=== PATIENT | male | born 1945 | race Two or more races ===

== ENCOUNTER 2017-10-12 06:05 | Day surgery (SDC) | payer MEDICARE, MEDICAID ==
--- NOTE | 2017-10-09 16:40 | Pre-Procedure Note/Attestation ---
Pre-Procedure Note/Attestation Complete Prior to Procedure Planned Procedure: right Procedure Narrative: Phaco with IOL, OD Indications for Procedure Pre-Operative Diagnosis: cataract Attestation I attest that I discussed the nature of the procedure; its benefits; risks and complications; and alternatives (and the risks and benefits of such alternatives ), prior to the procedure, with the patient (or the patient's legal customer solutions representative). I attest that, if there was a reasonable possibility of needing a blood transfusion, the patient (or the patient's legal customer solutions representative) was given the [facility] standardized written summary, pursuant to the [place] Blood Safety Act ([place] Health and Safety Code # 1645, as amended). I attest that I re-evaluated the patient just prior to the surgery and that there has been no change in the patient's H&P, except as documented below: MARYLIN LINDSAY Oct 09, 2017 16:40
--- NOTE | 2017-10-09 16:44 | Opthalmology H&P ---
Ophthalmology H&P H&P Chief Complaint: decreased vision in right eye HPI Vision Affects Ability to: read, focus/use eyes together, manage personal affairs HPI Narrative blurry vision Exam Visual Acuity: OD: LP OS: CF Tension: OD: 15 OS: 14 Eye Exam: normal OU: external exam, palpebral fissure-width, marginal reflex distance, levator function, corneas, anterior chambers, findings: lens - OD: dense cataract OS; dense cataract, fundus exam - poor view Assessment/Plan Diagnosis: (1) Cataract, total/mature Treatment Plan: cataract extraction w/ lens implant Goals of Treatment: improvement of vision, enhance quality of life Attestation Attestation The risks and benefits of the surgery as well as alternative procedures were explained to the patient in detail. MARYLIN LINDSAY Oct 09, 2017 16:44
[2017-10-12] VITALS (7 sets, daily range): BP systolic 129–145; BP diastolic 76–86
[~2017-10-12] VITALS: Ht 165.1 cm; Wt 56.7 kg
[~2017-10-12 06:05] MED LIST: ASPIR 8181 MG ORAL; NKM
[2017-10-12] MEDS ORDERED: Lidocaine 1% MPF 10mg/ml 5ml ONE (06:58)
[2017-10-12] MEDS ORDERED: Povidone-Iodine 5% opth solution ONE (06:59)
[2017-10-12] MEDS ORDERED: Carbachol 0.01% Op Soln 1.5ml vial ONE (06:59)
[2017-10-12] MEDS ORDERED: EPINEPHrine 1mg/1ml Amp ONE ×2 (06:59→07:00)
[2017-10-12] MEDS ORDERED: Akten 3.5% 1ml Btl RIGHT EYE ONE (07:00)
[2017-10-12] MEDS ORDERED: Tetracaine 0.5% Opth 4ml Soln RIGHT EYE ONE (07:00)
[2017-10-12] MEDS ORDERED: Dexamethasone 4mg/ml vial ONE (07:00)
[2017-10-12] MEDS ORDERED: Sodium Hyaluronate 14 mg/ml 0.85ml ONE (07:00)
[2017-10-12] MEDS ORDERED: BSS 500ml btl ONE (07:00)
[2017-10-12] MEDS ORDERED: Pred Forte 1% Opth Susp 1ml ONE (07:00)
[2017-10-12] MEDS ORDERED: Pilocarpine 2% Opth 15ml Soln ONE (07:00)
[2017-10-12] MEDS ORDERED: BSS 15ml BTL ONE (07:00)
[2017-10-12] MEDS ORDERED: Proparacaine 0.5% Opth Soln 15ml RIGHT EYE ONE (07:00)
[2017-10-12] MEDS ORDERED: Sterile Water 10ml Vial ONE (07:00)
[2017-10-12] MEDS ORDERED: Maxitrol Opth Oint 3.5gm ONE (07:00)
[2017-10-12] MEDS: Tropicamide 1% Opth 15ml Soln RIGHT EYE SCH ×3 (07:48→08:10)
[2017-10-12] MEDS: Ketorolac Tromethamine Opth 5ml Soln RIGHT EYE SCH ×3 (07:48→08:10)
[2017-10-12] MEDS: Tobramycin Op Soln 0.3% 5ml RIGHT EYE SCH ×3 (07:49→08:10)
[2017-10-12] MEDS: Phenylephrine 10% Opth Soln 5ml RIGHT EYE SCH ×3 (07:49→08:10)
[2017-10-12] MEDS: Cyclopentolate 1% Opth Sol 2ml RIGHT EYE SCH ×3 (07:49→08:10)
--- NOTE | 2017-10-12 10:49 | Anethesia Preoperative Eval ---
Anesthesia Pre-op PMH/ROS General Date of Evaluation: Oct 12, 2017 Time of Evaluation: 11:25 Anesthesiologist: Myriam ASA Score: ASA 2 Mallampati Score Class I : Soft palate, uvula, fauces, pillars visible Class II: Soft palate, uvula, fauces visible Class III: Soft palate, base of uvula visible Class IV: Only hard plate visible Mallampati Classification: Class II Surgeon: Britany Diagnosis: right eye cataract Surgical Procedure: right eye cataract removal with IOL Anesthesia History: none Social History: alcohol use - daily Family History: no anesthesia problems Allergies: Coded Allergies: No Known Allergies (Unverified , 10/09/17) Medications: see eMAR Past Medical History Cardiovascular: Denies: HTN, CAD, [place], valve dz, arrhythmia, other Pulmonary: Denies: asthma, COPD, [place], other Gastrointestinal/Genitourinary: Denies: GERD, CRI, ESRD, other Neurologic/Psychiatric: Reports: CVA - 2015 Endocrine: Denies: DM, hypothyroidism, steroids, other HEENT: Reports: cataract (L), cataract (R), other - [place] Hematology/Immune: Denies: anemia, DVT, bleeding disorder, other Musculoskeletal/Integumentary: Reports: OA, other - unsteady gait uses cane, neck surgery secondary to fracture Anesthesia Pre-op Phys. Exam Physician Exam Last Vital Signs Date Time Temp Pulse Resp B/P (MAP) Pulse Ox O2 Delivery O2 Flow Rate FiO2 10/12/17 07:57 98.9 84 18 144/84 97 Room Air Constitutional: NAD Neurologic: CN 2-12 intact Cardiovascular: RRR Respiratory: CTA Gastrointestinal: S/NT/ND Airway Exam Mallampati Score: Class II MO: limited ROM: full Teeth: missing Dentures: no upper, no lower Anesthesia Pre-op A/P Labs chart reviewed Accucheck Risk Assessment & Plan Assessment: A&Ox3 Plan: MAC as per . General as back-up plan. Status Change Before Surgery: No Pre-Antibiotics Given Within 1 Hr of Incision: No Barbara Miguel CRNA Oct 12, 2017 10:49
[2017-10-12] MEDS ORDERED: NS Irrig 1000ml ONE (11:30)
[2017-10-12] MEDS ORDERED: Midazolam 2mg/2ml Inj ONE (11:30)
[2017-10-12] MEDS ORDERED: Sterile Water Irrig 1000ml IRRIG ONE (11:30)
[2017-10-12] MEDS ORDERED: Propofol 200mg/20ml IV ONE (11:30)
[2017-10-12] MEDS ORDERED: LR 1000ml ONE (11:30)
--- NOTE | 2017-10-12 12:38 | Immediate Post-Op Evaluation ---
Immediate Post-Op Evalulation Immediate Post-Op Evalulation Procedure: right eye cataract removal with IOL Date of Evaluation: Oct 12, 2017 Time of Evaluation: 12:20 IV Fluids: LR 300 ml Blood Products: 0 Estimated Blood Loss: less than 3 ml Urinary Output: 0 Blood Pressure Systolic: 145 Blood Pressure Diastolic: 81 Pulse Rate: 82 Respiratory Rate: 25 O2 Sat by Pulse Oximetry: 98 Temperature (Fahrenheit): 98.8 Pain Score (1-10): 0 Nausea: No Vomiting: No Complications none noted Patient Status: awake, reacts Hydration Status: adequate Given Within 1 Hr of Incision: Barbara Reis CRNA Oct 12, 2017 12:38
--- NOTE | 2017-10-12 12:40 | 48 Hour Post Anesthesia Eval ---
Post Anesthesia Evaluation Procedure: right eye cataract removal with IOL Date of Evaluation: Oct 12, 2017 Time of Evaluation: 12:26 Blood Pressure Systolic: 142 0: 79 Pulse Rate: 80 Respiratory Rate: 24 Temperature (Fahrenheit): 98.8 O2 Sat by Pulse Oximetry: 98 Airway: patent Nausea: No Vomiting: No Pain Intensity: 0 Hydration Status: adequate Mental Status/LOC: patient returned to baseline Post-Anesthesia Complications: none Follow-up care needed: patient intructions given Barbara Miguel CRNA Oct 12, 2017 12:40
--- NOTE | 2017-10-15 09:09 | Brief Operative Note ---
Immediate Post Operative Note Operative Note Chief Complaint: blurry vision Pre-op Diagnosis: cataract, OD Procedure: phaco with IOL, OD Post-op Diagnosis: Pseudophakia Post-op Diagnosis: same as pre-op Findings: consistent w/pre-op dx studies Surgeon: Britany Anesthesiologist: Myriam Specimen: none Complications: none Fluids: LR Estimated Blood Loss: none Drains: none Implant(s) used?: Yes MARYLIN LINDSAY Oct 15, 2017 09:08
--- NOTE | 2017-10-15 09:10 | Operative Note - PDOC ---
Operative Note Operative Note Date of Operation/Procedure: Oct 12, 2017 Chief Complaint: blurry vision Pre-op Diagnosis: cataract, OD Procedure: phaco with IOL, OD Post-op Diagnosis: Pseudophakia Post-op Diagnosis: same as pre-op Operative Findings: consistent w/pre-op dx studies Surgeon: Britany Anesthesiologist: Myriam Specimen: none Complications: none Fluids: LR Estimated Blood Loss: none Drains: none Implant(s) used?: Yes Indications for Procedure cataract Description of Procedure This patient has been complaining visually significant cataract in the affected eye with the best corrected visual acuity under moderate glare conditions worse. The patient complains of difficulties with glare in performing activities of daily living and wants to manage personal affairs with comfort and accuracy and see well enough to move with safety at home and outdoors. The risks, benefits and alternatives of the procedure were discussed with the patient in the office prior to scheduling surgery. All questions from the patient were answered after the surgical procedure was explained in detail. The risks of the procedure as explained to the patient include, but are not limited to, pain, infection, bleeding, loss of vision, retinal detachment, need for further surgery, loss of lens nucleus, double vision, etc. Alternative procedures were discussed which include, to do nothing or seek a second opinion. Informed consent for this procedure was obtained from the patient. The patient was referred to a primary care physician for a cardiopulmonary clearance prior to surgery, after proper evaluation was done patient was properly scheduled for outpatient surgery. The patient was brought to the operating room where the anesthesiologist established I.V. lines and cardiac monitoring leads. Mild intravenous sedation was administered. The patient was then prepared with a 5% solution of povidone -iodine to the conjunctival fornix and lashes, and a 5% solution of povidone- iodine to the lids and periorbital skin. The patient was then draped in the usual sterile fashion. A lid speculum was then placed in the operative eye. A keratome blade was then used to create a biplanar incision into the anterior chamber. Viscoelastics was then instilled into the anterior chamber. A capsulorrhexis was then fashioned with an utrata forceps. BSS and a G 27 cannula were then used to do hydrodissection and hydro delineation of the lens nucleus. Paracentesis incision was made at 3 o'clock with sharp blade. The phacoemulsification unit, after being properly adjusted and tested, was then used to emulsify the nucleus. Residual cortical material was aspirated with the irrigation and aspiration unit. [place] was then instilled into the anterior chamber. The corneal wound was then enlarged to the size of the optic with the ju keratome blade. The intraocular lens was then inspected for right power and size and thought to be satisfactory. Then the lens was gently placed in the capsular bag. Positioning within the capsular bag was confirmed by direct visualization. Optic centration was accomplished with a Sins[place] hook. Viscoelastics was removed from the anterior chamber using the irrigation and aspiration unit. The corneal wound was then tested for leaks and none were found. The lid speculum were then removed. Sponge and needle counts were correct. An eye patch and shield were placed over the operative eye. The patient was taken to the recovery room in stable condition. There were no complications. The patient tolerated the procedure well. The patient was then transferred to the ambulatory surgery unit in stable and satisfactory condition , was given detailed written instructions and asked to follow up in the office the next day. MARYLIN LINDSAY Oct 15, 2017 09:10
== END 2017-10-12 13:30 | disposition home or self-care (01) ==
LOC: SUR 06:05
DX: H25.89 Other age-related cataract (principal); F32.9 Major depressive disorder, single episode, unspecified; I25.2 Old myocardial infarction; I25.10 Atherosclerotic heart disease of native coronary artery without angina pectoris; M17.0 Bilateral primary osteoarthritis of knee
CPT/HCPCS: 66984; J0171; J1100; J2250; J2704; J3370; J7120; V2632; 94003; 94150; A4216

== ENCOUNTER 2019-03-07 06:14 | Day surgery (SDC) | payer MEDICARE, OTHER ==
--- NOTE | 2019-03-06 14:38 | Opthalmology H&P ---
Ophthalmology H&P H&P Chief Complaint: decreased vision in left eye HPI Vision Affects Ability to: read, manage personal affairs HPI Narrative Blurry vision Exam Visual Acuity: OD 20/50 OS COUNTING FINGER Tension: OD 19 OS 20 Eye Exam: normal OU: external exam, palpebral fissure-width, marginal reflex distance, levator function, corneas, anterior chambers, lens - NS/Dense Cataract OS, fundus exam - Poor view OS; findings: lens - NS/Dense Cataract OS, fundus exam - Poor view OS Assessment/Plan Treatment Plan: cataract extraction w/ lens implant Goals of Treatment: improvement of vision, enhance quality of life Attestation Attestation The risks and benefits of the surgery as well as alternative procedures were explained to the patient in detail. Sanjeev Garg MD Mar 06, 2019 14:38
--- NOTE | 2019-03-06 14:39 | Pre-Procedure Note/Attestation ---
Pre-Procedure Note/Attestation Complete Prior to Procedure Planned Procedure: left Procedure Narrative: Cataract extraction with intraocular lens implant left eye Indications for Procedure Pre-Operative Diagnosis: Nuclear Sclerotic Dense Cataract left eye Attestation I attest that I discussed the nature of the procedure; its benefits; risks and complications; and alternatives (and the risks and benefits of such alternatives ), prior to the procedure, with the patient (or the patient's legal technology sales representative). I attest that, if there was a reasonable possibility of needing a blood transfusion, the patient (or the patient's legal technology sales representative) was given the [facility] standardized written summary, pursuant to the [place] Blood Safety Act ([place] Health and Safety Code # 1645, as amended). I attest that I re-evaluated the patient just prior to the surgery and that there has been no change in the patient's H&P, except as documented below: Sanjeev Garg MD Mar 06, 2019 14:39
[~2019-03-07] VITALS: Ht 165.1 cm; Wt 59.0 kg
[2019-03-07] VITALS (9 sets, daily range): BP systolic 128–145; BP diastolic 58–71
[2019-03-07] MEDS ORDERED: Maxitrol Opth Oint 3.5gm ONE (07:00)
[2019-03-07] MEDS ORDERED: Akten 3.5% 1ml Btl LEFT EYE ONE (07:00)
[2019-03-07] MEDS ORDERED: Phenylephrine 10% Opth Soln 5ml LEFT EYE SCH (07:00)
[2019-03-07] MEDS ORDERED: Tetracaine 0.5% Opth 4ml Soln LEFT EYE ONE (07:00)
[2019-03-07] MEDS ORDERED: Dexamethasone 4mg/ml vial ONE (07:00)
[2019-03-07] MEDS ORDERED: Tropicamide 1% Opth 15ml Soln LEFT EYE SCH (07:00)
[2019-03-07] MEDS ORDERED: Proparacaine 0.5% Opth Soln 15ml LEFT EYE ONE (07:00)
[2019-03-07] MEDS ORDERED: Diclofenac Sod 0.1% Op Soln LEFT EYE SCH (07:00)
[2019-03-07] MEDS ORDERED: Tobramycin Op Soln 0.3% 5ml LEFT EYE SCH (07:00)
[2019-03-07] MEDS ORDERED: Cyclopentolate 1% Opth Sol 2ml LEFT EYE SCH (07:00)
[2019-03-07] MEDS ORDERED: Pilocarpine 1% Opth 15ml Soln ONE (07:00)
[2019-03-07] MEDS ORDERED: Pred Forte 1% Opth Susp 1ml ONE (07:00)
[2019-03-07] MEDS ORDERED: EPINEPHrine 1mg/1ml Amp ONE (07:22)
[2019-03-07] MEDS ORDERED: Povidone-Iodine 5% opth solution ONE (07:23)
[2019-03-07] MEDS ORDERED: BSS 500ml btl ONE (07:23)
[2019-03-07] MEDS ORDERED: Sodium Hyaluronate 14 mg/ml 0.85ml ONE (07:23)
[2019-03-07] MEDS ORDERED: BSS 15ml BTL ONE (07:23)
--- NOTE | 2019-03-07 07:40 | NUR ---
NURSE NOTES: IV Line (R Hand 22g) started by Ghulam Keys RN
[2019-03-07] MEDS ORDERED: METOPROLOL TART25 MG ORAL (07:58)
[2019-03-07] MEDS ORDERED: LISINOPRIL5 MG ORAL (07:58)
[2019-03-07] MEDS ORDERED: FLOMAX0.4 MG ORAL (07:58)
[2019-03-07] MEDS ORDERED: ATORVASTATIN CA40 MG ORAL (07:58)
[2019-03-07] MEDS ORDERED: Midazolam 2mg/2ml Inj IVP PRN (08:00)
[2019-03-07] MEDS ORDERED: DiphenhydrAMINE 50mg/ml Inj IVP PRN (08:00)
[2019-03-07] MEDS ORDERED: fentaNYL 100 mcg/2 mL IV PRN (08:00)
[2019-03-07] MEDS ORDERED: Atropine Inj 1mg/10ml Syr IV PRN (08:00)
--- NOTE | 2019-03-07 08:03 | Anethesia Preoperative Eval ---
Anesthesia Pre-op PMH/ROS General Date of Evaluation: Mar 07, 2019 Time of Evaluation: 07:58 Anesthesiologist: sarath ASA Score: ASA 4 Mallampati Score Class I : Soft palate, uvula, fauces, pillars visible Class II: Soft palate, uvula, fauces visible Class III: Soft palate, base of uvula visible Class IV: Only hard plate visible Mallampati Classification: Class II Surgeon: jose Diagnosis: nuclar sclerotic cataract left eye Surgical Procedure: cataract extraction w/iol implant left eye Anesthesia History: none Social History: smoking - former smoker, alcohol use Family History: no anesthesia problems Allergies: Coded Allergies: No Known Allergies (Unverified , 10/09/17) Medications: see eMAR Patient NPO?: Yes Past Medical History Cardiovascular: Reports: HTN, [place], other - hypercholesterolemia Neurologic/Psychiatric: Reports: CVA HEENT: Reports: [place] (L) - tinnitus PSxH Narrative: neck sx Anesthesia Pre-op Phys. Exam Physician Exam Last Vital Signs Date Time Temp Pulse Resp B/P (MAP) Pulse Ox O2 Delivery O2 Flow Rate FiO2 03/07/19 07:51 Room Air Constitutional: NAD Neurologic: CN 2-12 intact Cardiovascular: RRR Respiratory: CTA Gastrointestinal: S/NT/ND Airway Exam Mallampati Score: Class II MO: limited Neck: decreased rom TMD: 2fb ROM: limited Teeth: missing Anesthesia Pre-op A/P Risk Assessment & Plan Assessment: asa4 Plan: mac Status Change Before Surgery: No Pre-Antibiotics Drug: Madison Pepe MD Mar 07, 2019 08:03
[2019-03-07] MEDS ORDERED: acetaZOLAMIDE 500mg Inj ONE (09:13)
[2019-03-07] MEDS ORDERED: Lidocaine 4% Amp ONE (09:43)
[2019-03-07] MEDS ORDERED: Midazolam 2mg/2ml Inj ONE (10:00)
[2019-03-07] MEDS ORDERED: LR 1000ml ONE (10:00)
[2019-03-07] MEDS ORDERED: Sterile Water Irrig 1000ml IRRIG ONE (10:00)
[2019-03-07] MEDS ORDERED: fentaNYL 100 mcg/2 mL IV ONE (10:00)
[2019-03-07] MEDS ORDERED: NS Irrig 1000ml ONE (10:00)
--- NOTE | 2019-03-07 11:16 | Immediate Post-Op Evaluation ---
Immediate Post-Op Evalulation Immediate Post-Op Evalulation Procedure: caataract extraction w/iol implant lft eye Date of Evaluation: Mar 07, 2019 Time of Evaluation: 11:09 IV Fluids: 600ml lr Blood Products: none Estimated Blood Loss: negligible Blood Pressure Systolic: 145 Blood Pressure Diastolic: 70 Pulse Rate: 86 Respiratory Rate: 18 O2 Sat by Pulse Oximetry: 98 Temperature (Fahrenheit): 99.1 Pain Score (1-10): 0 Nausea: No Vomiting: No Complications none Patient Status: awake, reacts, patent Hydration Status: adequate Drug: Madison Pepe MD Mar 07, 2019 11:16
--- NOTE | 2019-03-07 11:17 | 48 Hour Post Anesthesia Eval ---
Post Anesthesia Evaluation Procedure: caataract extraction w/iol implant lft eye Date of Evaluation: Mar 07, 2019 Time of Evaluation: 11:11 Blood Pressure Systolic: 145 0: 77 Pulse Rate: 85 Respiratory Rate: 18 Temperature (Fahrenheit): 99.1 O2 Sat by Pulse Oximetry: 99 Airway: patent Nausea: No Vomiting: No Pain Intensity: 0 Hydration Status: adequate Cardiopulmonary Status: stable Mental Status/LOC: patient returned to baseline Post-Anesthesia Complications: none Follow-up care needed: N/A Madison Pizarro MD Mar 07, 2019 11:17
--- NOTE | 2019-03-10 11:29 | Brief Operative Note ---
Immediate Post Operative Note Operative Note Chief Complaint: Blurry vision Pre-op Diagnosis: Nuclear Sclerotic Dense Cataract left eye Procedure: Cataract extraction with intraocular lens implant left eye Post-op Diagnosis: Pseudophakia left eye Post-op Diagnosis: same as pre-op Surgeon: Sanjeev Garg MD Anesthesiologist: Madison Johnson MD Anesthesia: MAC Specimen: none Complications: none Condition: stable Fluids: LR Estimated Blood Loss: none Drains: none Implant(s) used?: Yes - IOL Sanjeev Garg MD Mar 10, 2019 11:29
--- NOTE | 2019-03-10 11:37 | Operative Note - PDOC ---
Operative Note Operative Note Date of Operation/Procedure: Mar 07, 2019 Chief Complaint: Blurry vision Pre-op Diagnosis: Nuclear Sclerotic Dense Cataract left eye Procedure: Cataract extraction with intraocular lens implant left eye Post-op Diagnosis: Pseudophakia left eye Post-op Diagnosis: same as pre-op Surgeon: Sanjeev Garg MD Anesthesiologist: Madison Johnson MD Anesthesia: MAC Specimen: none Complications: none Condition: stable Fluids: LR Estimated Blood Loss: none Drains: none Implant(s) used?: Yes Indications for Procedure Nuclear sclerotic dense cataract left eye Description of Procedure This patient has been complaining of a visually significant dense cataract in the left eye with the best corrected visual acuity of counting fingers at 10 feet under moderate glare conditions worse resulting in light perception. The patient complains of difficulties in performing activities of daily living and wants to manage personal affairs with comfort and accuracy and see well enough to move with safety at home and outdoors independently. The risks, benefits and alternatives of the procedure were discussed with the patient in the office prior to scheduling surgery. All questions from the patient were answered after the surgical procedure was explained in detail. The risks of the procedure as explained to the patient include, but are not limited to, pain, infection, bleeding, loss of vision, retinal detachment, need for further surgery, loss of lens nucleus, double vision, etc. Alternative procedures were discussed which include, to do nothing or seek a second opinion. Informed consent for this procedure was obtained from the patient. The patient was referred to a primary care physician for a cardiopulmonary clearance prior to surgery, after proper evaluation was done patient was properly scheduled for outpatient surgery. The patient was brought to the operating room where the anesthesiologist established I.V. lines and cardiac monitoring leads. Mild intravenous sedation was administered. The patient was then prepared with a 5% solution of povidone -iodine to the conjunctival fornix and lashes, and a 5% solution of povidone- iodine to the lids and periorbital skin. The patient was then draped in the usual sterile fashion. A lid speculum was then placed in the operative eye. A keratome blade was then used to create a biplanar incision into the anterior chamber. Viscoelastics was then instilled into the anterior chamber. A 3-mm single pass clear corneal incision was made just anterior to the vascular arcade of the temporal limbus using a keratome. Anterior capsulorrhexis was created. The nucleus was hydrodissected and hydrodelineated, and was freely movable in the capsular bag. The nucleus was then phacoemulsified using a quadrantic [id number] technique. Following the deep groove formation, the lens was split bimanually and the resultant quadrants and cortical material was removed under vacuum burst -mode phacoemulsification. Peripheral cortex was removed with the irrigation and aspiration handpiece. The capsular bag was expanded with viscoelastic. The intraocular lens was then inspected for right power and size and thought to be satisfactory. The implant was inspected under the microscope and found to be free of defects. The implant was inserted into the cartridge system under viscoelastic and placed in the capsular bag. The trailing haptic was positioned with the cartridge system. Viscoelastics was removed from the anterior chamber using the irrigation and aspiration unit. The corneal wound was then tested for leaks and none were found. The lid speculum were then removed. Sponge and needle counts were correct. An eye patch and shield were placed over the operative eye. The patient was taken to the recovery room in stable condition. There were no complications. The patient tolerated the procedure well. The patient was then transferred to the ambulatory surgery unit in stable and satisfactory condition , was given detailed written instructions and asked to follow up in the office the next day. Sanjeev Garg MD Mar 10, 2019 11:37
== END 2019-03-07 13:50 | disposition home or self-care (01) ==
LOC: SUR 06:14
DX: H25.12 Age-related nuclear cataract, left eye (principal); I10 Essential (primary) hypertension; I25.2 Old myocardial infarction; E78.00 Pure hypercholesterolemia, unspecified; Z86.73 Personal history of transient ischemic attack (TIA), and cerebral infarction without residual deficits; Z87.891 Personal history of nicotine dependence
CPT/HCPCS: 66984; J0171; J1100; J1120; J2250; J3010; J3370; V2632; 94003; 94150